=== PATIENT | female | born 1975 | race Caucasian/White ===

== ENCOUNTER 2018-06-08 13:14 | Emergency (ER) | payer SELFPAY ==
[2018-06-08 13:37] VITALS: BP 106/73; PULSE 72; RESP 16; TEMP 97.8; O2SAT 98
[2018-06-08] MEDS ORDERED: Amoxicillin-Clav 875-125 mg Tab PO STA (14:03)
--- NOTE | 2018-06-08 14:05 | C.PDOC ---
History Of Present Illness 43 y/o female presents for evaluation after being bitten by her own dog last night. She sustained bite garsia to the left hand and right hand/forearm. Reportedly patient went to the clinic and received tetanus booster today. She states the dog is UTD with all vaccines. Patient denies any fevers or other complaints. Time Seen by Provider: 06/08/18 13:37 Chief Complaint (Nursing): Bite History Per: Patient History/Exam Limitations: no limitations Onset/Duration Of Symptoms: Days (x 1) Current Symptoms Are (Timing): Still Present Location Of Injury: Right: Forearm, Hand, Left: Hand Quality Of Symptoms: Painful - Animal Bite Description Of The Animal: Family Pet Reports Animal Appears: Well Reports Animal's Immunization Status: UTD Past Medical History Reviewed: Historical Data, Nursing Documentation, Vital Signs Vital Signs: Last Vital Signs Temp 97.8 F 06/08/18 13:32 Pulse 72 06/08/18 13:32 Resp 16 06/08/18 13:32 BP 106/73 06/08/18 13:32 Pulse Ox 98 06/08/18 13:32 - Medical History PMH: No Chronic Diseases Family History: States: Unknown Family Hx - Social History Hx Tobacco Use: No Hx Alcohol Use: No Hx Substance Use: No - Immunization History Hx Tetanus Toxoid Vaccination: Yes Hx Influenza Vaccination: No Hx Pneumococcal Vaccination: No Review Of Systems Except As Marked, All Systems Reviewed And Found Negative. Constitutional: Negative for: Fever, Chills Musculoskeletal: Positive for: Hand Pain Skin: Positive for: Other (Dog bite to left hand, right hand/forearm) Neurological: Negative for: Weakness, Numbness, Incoordination Physical Exam - Physical Exam Appears: Non-toxic, No Acute Distress Skin: Warm, Other (Left 1st digit with 0.5 cm laceration near the proximal joint; Right hand/forearm with multiple linear abrasions) Head: Atraumatic, Normacephalic Eye(s): bilateral: Normal Inspection Neck: Normal ROM Chest: Symmetrical Respiratory: No Accessory Muscle Use, Other (Normal inspiratory effort, Speaking in full sentences) Extremity: Normal ROM, Capillary Refill (< 2 sec), No Deformity, No Swelling Pulses: Left Radial: Normal, Right Radial: Normal Neurological/Psych: Oriented x3, Normal Motor, Normal Sensation ED Course And Treatment O2 Sat by Pulse Oximetry: 98 (RA) Pulse Ox Interpretation: Normal Medical Decision Making Medical Decision Making: Impression: Dog bite, Hand pain Plan: - Right forearm x-ray - Bilateral hand x-ray - Patient started on Augmentin xr neg forforeign body. wound cleaned by tech. as this is dog bite, will not close as high change of infection. will allow lac to heal on its own. pro phalaxci antibiotics given. advise outpt fu an dreturn precautions Disposition Counseled Patient/Family Regarding: Diagnosis, Need For Followup, Rx Given - Disposition Referrals: Loren Santacruz MD [Staff Provider] - Disposition: HOME/ ROUTINE Disposition Time: 14:04 Condition: STABLE Additional Instructions: return to er with worsening. please see your doctor/clinic and specialist. Prescriptions: Amoxicillin/Clavulanate [Augmentin 875 MG-125 MG] 1 tab PO BID #20 tab Instructions: Animal Bites (DC) Forms: Food Reporter (Lithuanian) Print Language: MAORI - POA Present On Arrival: None - Clinical Impression Clinical Impression: Dog bite - Scribe Statement The provider has reviewed the documentation as recorded by the Constance Curry Provider Attestation: All medical record entries made by the Kalyanibnina were at my direction and personally dictated by me. I have reviewed the chart and agree that the record accurately reflects my personal performance of the history, physical exam, medical decision making, and the department course for this patient. I have also personally directed, reviewed, and agree with the discharge instructions and disposition.
--- NOTE | 2018-06-08 14:06 | C.PDOC ---
Time Seen by Provider: 06/08/18 13:37 Chief Complaint (Nursing): Bite Past Medical History Vital Signs: Last Vital Signs Temp 97.8 F 06/08/18 13:32 Pulse 72 06/08/18 13:32 Resp 16 06/08/18 13:32 BP 106/73 06/08/18 13:32 Pulse Ox 98 06/08/18 13:32 - Social History Hx Alcohol Use: No Hx Substance Use: No - Immunization History Hx Tetanus Toxoid Vaccination: Yes Hx Influenza Vaccination: No Hx Pneumococcal Vaccination: No ED Course And Treatment O2 Sat by Pulse Oximetry: 98 Disposition - Disposition Referrals: Loren Santacruz MD [Staff Provider] - Disposition: HOME/ ROUTINE Disposition Time: 14:04 Condition: STABLE Additional Instructions: return to er with worsening. please see your doctor/clinic and specialist. Prescriptions: Amoxicillin/Clavulanate [Augmentin 875 MG-125 MG] 1 tab PO BID #20 tab Instructions: Animal Bites (DC) Print Language: AZERBAIJANI - Clinical Impression Clinical Impression: Dog bite
[2018-06-08] MEDS ORDERED: Bacitracin 500 Units/gm Oint Foilpak UD ONE ×3 (14:19→14:22)
[2018-06-08] MEDS ORDERED: Amoxicillin-Clav 875-125 mg Tab PO ONE (14:31)
--- NOTE | 2018-06-08 15:32 | RAD ---
PROCEDURE: Bilateral hand radiographs. HISTORY: dog bite COMPARISON: None. FINDINGS: BONES: Right Hand: Bone alignment and mineralization are normal. There is no acute displaced fracture or bone destruction. Left Hand: Bone alignment and mineralization are normal. There is no acute displaced fracture or bone destruction. JOINTS: Right Hand: Normal. Left Hand: Normal. SOFT TISSUES: Right Hand: Normal. Left Hand: Normal. OTHER FINDINGS: None. IMPRESSION: No acute displaced fracture or dislocation. No soft tissue abnormality.
--- NOTE | 2018-06-08 15:36 | RAD ---
PROCEDURE: Radiographs of the Right Forearm HISTORY: dog bite COMPARISON: None available. TECHNIQUE: Frontal and lateral views obtained. FINDINGS: BONES: Bone alignment and mineralization are normal. There is no acute displaced fracture or bone destruction. JOINT SPACES: Unremarkable. OTHER FINDINGS: None. IMPRESSION: Unremarkable radiographs of the right forearm.
== END 2018-06-08 14:33 | disposition home or self-care (01) ==
LOC: C.ER 13:14
DX: S61.452A Open bite of left hand, initial encounter (principal); S61.451A Open bite of right hand, initial encounter; W54.0XXA Bitten by dog, initial encounter